=== PATIENT | female | born 1945 | race African-American/Black ===

== ENCOUNTER 2017-02-10 13:07 | Emergency (ER) | payer MEDICARE, MEDICAID ==
[~2017-02-10] VITALS: Ht 170.2 cm; Wt 108.9 kg
[~2017-02-10 13:07] MED LIST: ADALAT CC90 MG ORAL; ALBUTEROL2.5 MG/3 M INH; ASPIRIN-LOW81 MG ORAL; ATIVAN2 MG ORAL; AZOPT10 ML BOTH EYES; CELEBREX100 MG ORAL; DOK100 M1 PO; GLUCOTROL XL10 MG ORAL; HYDROCHLOROTHIA50 MG ORAL; IBUPROFEN200 MG ORAL; METFORMIN HCL1000 M1 ORAL; PROAIR HFA8.5 GM INH; PROPYLTHIOURACI50 MG PO; TENORMIN50 MG ORAL; TRAMADOL HCL50 MG ORAL; TRAVATAN Z5 ML BOTH EYES
[2017-02-10] MEDS ORDERED: Lactulose 20gm/30ml UDC ORAL ONE (14:15)
--- NOTE | 2017-02-10 14:17 | Emergency Room Report ---
History of Present Illness General Chief Complaint: General Complaint Source: Patient, Medical Record Present Illness HPI 71 YO Female presents to the ED c/o constipation x 1 day with only passing gas , and having to strain with no productivity in attempt to have bowel movement. denies abdominal pain, denies nausea or vomiting, denies hx of cx or familial hx of cx. Denies abdominal tenderness, rashes, blood in the stool, black tarry stools, or hemorrhoids or night sweats. Pt states she regularly takes prune juice in an attempt to keep her BM's regular. pt. states she has had subjective constipation x 2 years states on average having a BM every 2-3 days, and has to strain regularly. Pt. denies fatigue, polyuria or polydipsia. Pt. reports hx of DM, HTN, and asthma. Denies CP, Palpitations, LOC, AMS, dizziness, Changes in Vision, Sensation, paresthesias, or a sudden severe headache. Allergies: Coded Allergies: No Known Allergies (Unverified , 11/15/12) Patient History Past Medical History: see triage record Past Surgical History: none Pertinent Family History: none Now: No Immunizations: UTD Reviewed Nursing Documentation: PMH: Agreed, PSxH: Agreed Nursing Documentation-PMH Past Medical History: No History, Except For Hx Cardiac Problems: Yes Hx Hypertension: Yes Hx COPD: Yes Hx Diabetes: Yes Hx Cancer: No Hx Gastrointestinal Problems: No Hx Neurological Problems: No Review of Systems All Other Systems: negative except mentioned in HPI Physical Exam Vital Signs Date Time Temp Pulse Resp B/P Pulse Ox O2 Delivery O2 Flow Rate FiO2 02/10/17 13:21 97.7 70 16 164/70 94 Room Air Sp02 EP Interpretation: reviewed, abnormal - Systolic BP is elevated General Appearance: no apparent distress, alert, GCS 15, non-toxic Head: normocephalic, atraumatic Eyes: bilateral eye PERRL, bilateral eye normal inspection ENT: hearing grossly normal, normal pharynx, no angioedema, normal voice Neck: full range of motion, supple/symm/no masses Respiratory: lungs clear, normal breath sounds, speaking full sentences Cardiovascular #1: regular rate, rhythm, no edema Gastrointestinal: normal bowel sounds, non tender, soft, no guarding, no rebound, other - Negative [place] signs, Negative MacBurney's sign, Negative Rosvigns Sign, Negative Psoas, No Peritoneal signs. , overweight Rectal: deferred Genitourinary: normal inspection, no CVA tenderness Musculoskeletal: back normal, gait/station normal, normal range of motion Neurologic: alert, oriented x3, responsive, motor strength/tone normal, sensory intact, speech normal Psychiatric: judgement/insight normal, memory normal, mood/affect normal Skin: normal color, no rash, warm/dry, well hydrated Medical Decision Making PA Attestation Dr. Haskins is my supervising Physician whom patient management has been discussed with. Diagnostic Impression: Primary Impression: Constipation Qualified Codes: K59.01 - Slow transit constipation ER Course 71 YO Female presents to the ED c/o constipation x 1 day with only passing gas , and having to strain with no productivity in attempt to have bowel movement. denies abdominal pain, denies nausea or vomiting, denies hx of cx or familial hx of cx. Denies abdominal tenderness, rashes, blood in the stool, black tarry stools, or hemorrhoids or night sweats. Pt states she regularly takes prune juice in an attempt to keep her BM's regular. pt. states she has had subjective constipation x 2 years states on average having a BM every 2-3 days, and has to strain regularly. Pt. denies fatigue, polyuria or polydipsia. Pt. reports hx of DM, HTN, and asthma. Denies CP, Palpitations, LOC, AMS, dizziness, Changes in Vision, Sensation, paresthesias, or a sudden severe headache. Ddx considered but are not limited to constipation , appendicitis, SBO, acute abdomen, Dm gastroparesis Vital signs: are WNL, pt. is afebrile H&PE are most consistent with constipation. bowl sounds are normo active, abdomen is soft, non-distended and non-tender. ORDERS: Imaging and laboratory work is not indicated with HPI and benign PE. ED INTERVENTIONS: - Lactulose PO -d/w pt. that I will initiate conservative treatment, d/w pt. increased fiber, and the importance in following up with her PCP. d/w pt. to return to the ED with new or worsening of current symptoms. I do not suspect an emergent condition at this time. with current presentation pt. is stable for close outpatient follow up. DISCHARGE: At this time pt. is stable for d/c to home. Will provide printed patient care instructions, and any necessary prescriptions. Care plan and follow up instructions have been discussed with the patient prior to discharge. Last Vital Signs Date Time Temp Pulse Resp B/P Pulse Ox O2 Delivery O2 Flow Rate FiO2 02/10/17 13:21 97.7 70 16 164/70 94 Room Air Disposition: HOME, SELF-CARE Condition: Stable Scripts Docusate Sodium* (COLACE*) 100 Mg Capsule 100 MG ORAL TWICE A DAY, #60 CAP Prov: Chantel Gamez 02/10/17 Lactulose (LACTULOSE*) 20 Gm/30 Ml Solution 30 ML ORAL BID, #180 ML 0 Refills Prov: Chantel Gamez 02/10/17 Patient Instructions: Constipation, Adult, [id number] Additional Instructions: Take medications as directed. Follow up with PCP in 3 days, to evaluate your hx of constipation, and for continued management of your symptoms. Return sooner to ED if new symptoms occur, or current symptoms become worse. - Please note that this Emergency Department Report was dictated using [email or web address] research intern technology software, occasionally this can lead to erroneous entry secondary to interpretation by the dictation equipment. Chantel Gamez Feb 10, 2017 14:17
[2017-02-10] MEDS ORDERED: COLACE100 MG ORAL (14:18)
[2017-02-10] MEDS ORDERED: LACTULOSE20 GM/301 ORAL (14:18)
[2017-02-10 14:19] VITALS: BP 157/65
[2017-02-10 14:22] VITALS: BP 157/65
== END 2017-02-10 14:25 | disposition home or self-care (01) ==
LOC: EMR 13:55
DX: K59.01 Slow transit constipation (principal); E11.9 Type 2 diabetes mellitus without complications; I10 Essential (primary) hypertension; J44.9 Chronic obstructive pulmonary disease, unspecified
CPT/HCPCS: 99284

== ENCOUNTER 2017-05-17 13:36 | Emergency (ER) | payer MEDICARE, MEDICAID ==
[~2017-05-17] VITALS: Ht 170.2 cm; Wt 94.3 kg
[~2017-05-17 13:36] MED LIST changes: +COLACE100 MG ORAL; +LACTULOSE20 GM/301 ORAL
[2017-05-17 14:32] VITALS: BP 108/67
[2017-05-17 15:09] LABS: BASOPHILS % (AUTO) 1.6 % (0.0-2.0); EOSINOPHILS % (AUTO) 3.5 % (0.0-3.0); LYMPHOCYTES % (AUTO) 18.5 % (20.0-45.0); MEAN CORPUSCULAR HEMOGLOBIN 26.4 PG (27.0-31.0); MEAN CORPUSCULAR HGB CONC 31.2 G/DL (32.0-36.0); MEAN CORPUSCULAR VOLUME 85 FL (80-99); MEAN PLATELET VOLUME 6.8 FL (6.5-10.1); MONOCYTES % (AUTO) 14.9 % (1.0-10.0); NEUTROPHILS % (AUTO) 61.6 % (45.0-75.0); PLATELET COUNT 292 K/UL (150-450); RED BLOOD COUNT 5.59 M/UL (4.20-5.40); RED CELL DISTRIBUTION WIDTH 15.3 % (11.6-14.8); WHITE BLOOD COUNT 8.8 K/UL (4.8-10.8)
[2017-05-17 15:43] LABS: ALANINE AMINOTRANSFERASE 23 U/L (12-78); ALBUMIN/GLOBULIN RATIO 0.4 (1.0-2.7); ANION GAP 9 (5-15); ASPARTATE AMINO TRANSFERASE 20 U/L (15-37); CALCIUM 9.8 MG/DL (8.5-10.1); CARBON DIOXIDE 28 MMOL/L (21-32); CHLORIDE 90 MMOL/L (98-107); CREATININE 2.3 MG/DL (0.55-1.00); POTASSIUM 2.9 MMOL/L (3.5-5.1); SODIUM 127 MMOL/L (136-145); TOTAL PROTEIN 10.7 G/DL (6.4-8.2)
[2017-05-17] MEDS ORDERED: COLCRYS0.6 M1 PO ×2 (16:07→17:54)
[2017-05-17] MEDS ORDERED: traMADol 50mg tab ORAL ONE (16:15)
[2017-05-17 16:20] VITALS: BP 108/67
--- NOTE | 2017-05-17 21:40 | Emergency Room Report ---
History of Present Illness General Chief Complaint: Pain Source: Patient, Family Member - son (LORRAINE PABON) Present Illness HPI The patient is a 72-year-old female presenting for right knee pain and swelling for the past 2 days. She denies any injury to the area. Pain is an 8/10 dull ache and does not radiate. Worse with movement and touch. She states that she is currently taking a diuretic and sees her primary doctor if he 2 weeks for blood draw due to poor kidney function. She denies any other symptoms including nausea, vomiting, fever, chills, shortness of breath, calf pain. She denies history of gout (LORRAINE PABON.Zahra) Allergies: Coded Allergies: No Known Allergies (Unverified , 11/15/12) Patient History Past Medical History: see triage record Pertinent Family History: none Reviewed Nursing Documentation: PMH: Agreed, PSxH: Agreed (LORRAINE PABON) Nursing Documentation-PMH Hx Cardiac Problems: Yes Hx Hypertension: Yes Hx COPD: Yes Hx Diabetes: Yes Hx Cancer: No Hx Gastrointestinal Problems: No Hx Neurological Problems: No (LORRAINE PABON P.A.) Review of Systems All Other Systems: negative except mentioned in HPI (LORRAINE PABON P.Zahra) Physical Exam Vital Signs Date Time Temp Pulse Resp B/P (MAP) Pulse Ox O2 Delivery O2 Flow Rate FiO2 05/17/17 13:47 97.5 76 19 108/67 95 Room Air Sp02 EP Interpretation: reviewed, normal General Appearance: no apparent distress, alert, GCS 15, non-toxic Head: normocephalic, atraumatic Eyes: bilateral eye normal inspection, bilateral eye PERRL ENT: hearing grossly normal, normal pharynx, no angioedema, normal voice Musculoskeletal: decreased range of motion - unable to fully extend at the R knee, swelling - R knee, tender - diffuse R knee Neurologic: alert, oriented x3, responsive, motor strength/tone normal, sensory intact, speech normal Psychiatric: judgement/insight normal, memory normal, mood/affect normal, no suicidal/homicidal ideation Skin: normal color, no rash, warm/dry, well hydrated (LORRAINE PABON P.ATravis) Medical Decision Making PA Attestation Dr. Quintanilla is my supervising physician. Patient management was discussed with my supervising physician (LORRAINE PABON) Diagnostic Impression: Primary Impression: Gout Qualified Codes: M10.9 - Gout, unspecified Additional Impressions: Renal insufficiency Hypokalemia ER Course The patient is a 72-year-old female presenting for right knee pain and swelling Differential diagnoses considered but not limited to: Gout, fracture, strain/ sprain, cellulitis, arthritis, among others PE: Afebrile. NAD Right knee: There is localized edema to the right knee with diffuse tenderness. Unable to fully extend at the knee. Full flexion. There is no lower extremity edema. No calf tenderness. Skin is warm and dry. No erythema Blood work shows signs of renal failure with hyponatremia and hypokalemia Uric acid is elevated Right knee x-ray shows no acute fracture. There is soft tissue swelling with an ossification superior to patella. Unknown etiology The patient is treated for gout with colchicine. She will follow up with her primary doctor for further evaluation. She was given radiology report. She will FU with PMD for electrolyte abnormalities. ER precautions given Laboratory Tests Test 05/17/17 15:00 White Blood Count 8.8 K/UL (4.8-10.8) Red Blood Count 5.59 M/UL (4.20-5.40) H Hemoglobin 14.7 G/DL (12.0-16.0) Hematocrit 47.3 % (37.0-47.0) H Mean Corpuscular Volume 85 FL (80-99) Mean Corpuscular Hemoglobin 26.4 PG (27.0-31.0) L Mean Corpuscular Hemoglobin Concent 31.2 G/DL (32.0-36.0) L Red Cell Distribution Width 15.3 % (11.6-14.8) H Platelet Count 292 K/UL (150-450) Mean Platelet Volume 6.8 FL (6.5-10.1) Neutrophils (%) (Auto) 61.6 % (45.0-75.0) Lymphocytes (%) (Auto) 18.5 % (20.0-45.0) L Monocytes (%) (Auto) 14.9 % (1.0-10.0) H Eosinophils (%) (Auto) 3.5 % (0.0-3.0) H Basophils (%) (Auto) 1.6 % (0.0-2.0) Sodium Level 127 MMOL/L (136-145) L Potassium Level 2.9 MMOL/L (3.5-5.1) L Chloride Level 90 MMOL/L (98-107) L Carbon Dioxide Level 28 MMOL/L (21-32) Anion Gap 9 (5-15) Blood Urea Nitrogen 86 mg/dL (7-18) H Creatinine 2.3 MG/DL (0.55-1.00) H Estimate Glomerular Filtration Rate mL/min (>60) Glucose Level 206 MG/DL (74-106) H Uric Acid 16.3 MG/DL (2.6-7.2) H Calcium Level 9.8 MG/DL (8.5-10.1) Total Bilirubin 0.4 MG/DL (0.2-1.0) Aspartate Amino Transferase (AST) 20 U/L (15-37) Alanine Aminotransferase (ALT) 23 U/L (12-78) Alkaline Phosphatase 173 U/L (46-116) H Total Protein 10.7 G/DL (6.4-8.2) H Albumin 3.5 G/DL (3.4-5.0) Globulin 7.2 g/dL Albumin/Globulin Ratio 0.4 (1.0-2.7) L Lab Results Impression Hyponatremia, hypokalemia, hyperglycemia. Elevated uric acid (LORRAINE PABON P.A.) ER Course Patient was examined by me. Ligaments stable and effusion. No joint warmth. Discussed findings and xray. Discussed treatment plan (stop HCTZ) as well as assisted in obtaining rx. (Robert Quintanilla M.D.) Other X-Ray Diagnostic Results Other X-Ray Diagnostic Results : X-Ray ordered: R knee # of Views/Limited Vs Complete: 3 View Indication: Swelling EP Interpretation: Yes Interpretation: no dislocation, other - + STS with degenerative changes and ossifcation Impression: Other - + STS with degenerative changes and ossifcation Electronically Signed by: PARUL Chambersibyakov Text I have reviewed the xray with my supervising physician and interpretation is that there is STS with degenerative changes and ossification (LORRAINE PABON P.A.) Other X-Ray Diagnostic Results : Electronically Signed by: Imeldaibe documentation reviewed by me and is accurate, Robert Quintanilla MD. (Robert Quintanilla M.D.) Last Vital Signs Date Time Temp Pulse Resp B/P (MAP) Pulse Ox O2 Delivery O2 Flow Rate FiO2 05/17/17 16:20 97.5 73 19 108/67 95 Room Air Status: improved (LORRAINE PABON P.A.) Disposition: HOME, SELF-CARE Condition: Improved Scripts Colchicine (COLCRYS) 0.6 Mg Tablet 0.6 MG PO Q6HR, #10 TAB Prov: LORRAINE PABON 05/17/17 Patient Instructions: Gout Additional Instructions: I discussed my findings with the patient. All questions and concerns have been answered. Treatment and medication compliance have been addressed. I advised the patient that they need to follow up with PMD in 3-5 days. Return to ED if symptoms worsen, new symptoms arise such as fever, or if needed for any reason. Patient verbalized understanding of discharge instructions. Please be aware that the colchicine may have you experience nausea, vomiting, and/or diarrhea LORRAINE PABON May 17, 2017 21:40 Robert Quintanilla M.D. May 18, 2017 05:31
--- NOTE | 2017-05-18 12:31 | Diagnostic Imaging Report ---
Indication: Pain 3 views of the right knee were obtained. Findings: Large ossified density noted above the patella. This appears to be free-floating and may be within the joint. There is also in the unusual bony projection in the lateral aspect of the distal femur well above the patella consistent with an osteochondroma. The patella appears high in location as well. Moderate osteophyte formation involving all 3 compartments of the knee noted. Vascular calcifications noted. Impression: Large ossified structure in the suprapatellar pouch may be a synovial osteochondroma. Pedunculated appearing osseous projection involving the lateral aspect of the distal femoral diaphysis consistent with the osteochondroma. Further cross-sectional imaging, this is either CT or MR) of these findings may be of benefit. Osteoarthritis
== END 2017-05-17 16:21 | disposition home or self-care (01) ==
LOC: EMR 14:34
DX: M10.9 Gout, unspecified (principal); N28.9 Disorder of kidney and ureter, unspecified; E87.6 Hypokalemia; M25.561 Pain in right knee; M25.461 Effusion, right knee; Z86.79 Personal history of other diseases of the circulatory system; I10 Essential (primary) hypertension; J44.9 Chronic obstructive pulmonary disease, unspecified; E11.9 Type 2 diabetes mellitus without complications
CPT/HCPCS: 36415; 80053; 84550; 85025; 99284

== ENCOUNTER 2017-12-26 11:22 | Emergency (ER) | payer MEDICARE, MEDICAID ==
[~2017-12-26] VITALS: Ht 170.2 cm; Wt 108.9 kg
[~2017-12-26 11:22] MED LIST changes: +COLCRYS0.6 M1 PO
[2017-12-26 11:37] VITALS: BP 157/76
[2017-12-26] MEDS ORDERED: COLCHICINE0.6 M1 PO (11:48)
[2017-12-26 12:05] VITALS: BP 150/78
--- NOTE | 2017-12-26 13:22 | Emergency Room Report ---
History of Present Illness General Chief Complaint: Pain Source: Patient Present Illness HPI Patient presents with complaints of left knee pain Reports that she has history of gout and feels that this is exacerbated again she noticed some mild swelling however does not have any other pain medication denies any fall or trauma She reports that she has been walking around more than usual Denies any fevers or chills denies any redness Allergies: Coded Allergies: No Known Allergies (Unverified , 11/15/12) Patient History Past Medical History: see triage record Pertinent Family History: none Reviewed Nursing Documentation: PMH: Agreed; PSxH: Agreed Nursing Documentation-PMH Hx Cardiac Problems: Yes Hx Hypertension: Yes Hx COPD: Yes Hx Diabetes: Yes Hx Cancer: No Hx Gastrointestinal Problems: No Hx Neurological Problems: No Review of Systems All Other Systems: negative except mentioned in HPI Physical Exam Vital Signs Date Time Temp Pulse Resp B/P (MAP) Pulse Ox O2 Delivery O2 Flow Rate FiO2 12/26/17 11:31 97.9 84 20 157/76 96 Room Air 97.9 Sp02 EP Interpretation: reviewed, normal General Appearance: well appearing, no apparent distress Head: normocephalic, atraumatic Eyes: bilateral eye PERRL, bilateral eye EOMI ENT: normal pharynx, no angioedema Neck: supple Respiratory: lungs clear Cardiovascular #1: regular rate, rhythm Gastrointestinal: non tender, soft, no mass Musculoskeletal: other - Mild swelling is noted to the left knee, no obvious erythema joint is mobile, Neurologic: alert, oriented x3, responsive Skin: other - As above Lymphatic: no adenopathy Medical Decision Making Diagnostic Impression: Primary Impression: Gout Additional Impression: Knee effusion, left ER Course Multiple differentials such as septic joint, arthritis, gout versus other, occult fracture entertained Patient has otherwise a fairly benign evaluation My consideration for septic joint is low And the patient treated symptomatically for initial outpatient care Last Vital Signs Date Time Temp Pulse Resp B/P (MAP) Pulse Ox O2 Delivery O2 Flow Rate FiO2 12/26/17 12:05 97.9 79 20 150/78 96 Room Air 97.9 Status: improved Disposition: HOME, SELF-CARE Condition: Improved Scripts Colchicine (Colchicine) 0.6 Mg Capsule 0.6 MG PO Q8HR, #12 CAP Prov: Dena Reyna DO 12/26/17 Referrals: NON PHYSICIAN (PCP) Patient Instructions: Knee Effusion, [id number], Gout, [id number], Joint Pain Additional Instructions: Patient is provided with the discharge instructions notified to follow up with primary doctor in the next 2-3 days otherwise return to the er with any worsening symptoms. Please note that this report is being documented using [employer] technology. This can lead to erroneous entry secondary to incorrect interpretation by the dictating instrument. Dena Reyna DO December 26, 2017 13:22
== END 2017-12-26 12:05 | disposition home or self-care (01) ==
LOC: EMR 11:36
DX: M10.9 Gout, unspecified (principal); M25.462 Effusion, left knee; I10 Essential (primary) hypertension; J44.9 Chronic obstructive pulmonary disease, unspecified; E11.9 Type 2 diabetes mellitus without complications
CPT/HCPCS: 99283

== ENCOUNTER 2018-03-05 12:02 | Emergency (ER) | payer MEDICARE, MEDICAID ==
[~2018-03-05] VITALS: Ht 170.2 cm; Wt 99.3 kg
[~2018-03-05 12:02] MED LIST changes: +COLCHICINE0.6 M1 PO
[2018-03-05 12:30] VITALS: BP 134/71
[2018-03-05] MEDS ORDERED: oxyCODONE HCL/Acetaminophen 5/325mg ORAL ONE (12:30)
[2018-03-05] MEDS ORDERED: NORCO 5-325 TA1 EACH ORAL (12:56)
[2018-03-05] MEDS ORDERED: COLCHICINE0.6 M1 PO (12:56)
--- NOTE | 2018-03-05 12:59 | Emergency Room Report ---
History of Present Illness General Chief Complaint: Pain Source: Patient Present Illness HPI 72-year-old female with history of gout, CK-MB, hypertension, presents with 5 days of increasing bilateral kneeachy, constant, severe pain, reports mild swelling bilaterally but no redness, no fevers and does reports she's able to range the knee. His pain in the past, and she only tried Tylenol without relief. Allergies: Coded Allergies: AMPICILLIN (Verified Allergy, Unknown, 03/05/18) Patient History Past Medical History: see triage record Reviewed Nursing Documentation: PMH: Agreed; PSxH: Agreed Nursing Documentation-PMH Hx Cardiac Problems: Yes - gout Hx Hypertension: Yes Hx COPD: Yes Hx Diabetes: Yes Hx Cancer: No Hx Gastrointestinal Problems: No Hx Neurological Problems: No Review of Systems All Other Systems: negative except mentioned in HPI Physical Exam Vital Signs Date Time Temp Pulse Resp B/P (MAP) Pulse Ox O2 Delivery O2 Flow Rate FiO2 03/05/18 12:16 98.5 84 20 134/71 88 Room Air 98.4 Sp02 EP Interpretation: reviewed, normal General Appearance: no apparent distress, alert, non-toxic Head: normocephalic Eyes: bilateral eye normal inspection, bilateral eye PERRL, bilateral eye EOMI ENT: normal ENT inspection, hearing grossly normal, normal pharynx, no angioedema, normal voice, moist mucus membranes Neck: normal inspection, full range of motion, supple, supple/symm/no masses Respiratory: chest non-tender, lungs clear, normal breath sounds, chest symmetrical, palpation of chest normal Cardiovascular #1: normal peripheral pulses, regular rate, rhythm, edema - Trace bilateral lower extremity edema to distal tibia Cardiovascular #2: 2+ radial (R), 2+ radial (L), 2+ dorsalis pedis (R), 2+ dorsalis pedis (L) Gastrointestinal: normal inspection, non tender, soft, no mass, no guarding, no rebound Rectal: deferred Genitourinary: normal inspection, no CVA tenderness Musculoskeletal: back normal, gait/station normal, non-tender, no calf tenderness, decreased range of motion - Patient able to range 92 nearly ~160, but full extension is limited, but no overlying erythema warmth and only mild effusion palpable in both knees, Lilly's Sign negative Neurologic: alert, responsive, induction machine setter III-XII nml as tested, motor strength/tone normal, sensory intact, speech normal Psychiatric: judgement/insight normal, memory normal, mood/affect normal, no suicidal/homicidal ideation Skin: normal color, no rash, warm/dry, normal turgor Lymphatic: no adenopathy Medical Decision Making Diagnostic Impression: Primary Impression: Gout ER Course Patient given Percocet here with excellent relief of pain, review labs reveal patient with intermittent kidney function test elevations in the past, but normal liver function. Will give colchicine as well as 5 tabs of [place] when necessary for severe pain. Current follow-up with PMD. Diagnosis gout flare Last Vital Signs Date Time Temp Pulse Resp B/P (MAP) Pulse Ox O2 Delivery O2 Flow Rate FiO2 03/05/18 12:40 98.5 03/05/18 12:30 80 20 134/71 90 Room Air Disposition: HOME, SELF-CARE Condition: Stable Scripts Hydrocodone Bit/Acetaminophen 5-325* (NORCO 5-325*) 1 Each Tablet 1 TAB ORAL Q6H PRN for For Pain, #5 TAB 0 Refills Prov: REGINALDO HESTER M.D 03/05/18 Colchicine (Colchicine) 0.6 Mg Capsule 0.6 MG PO TID, #20 CAP Prov: REGINALDO HESTER M.D 03/05/18 Referrals: NON PHYSICIAN (PCP) Patient Instructions: Gout, [id number] REGINALDO HESTER M.D Mar 05, 2018 12:59
[2018-03-05 13:05] VITALS: BP 124/75
== END 2018-03-05 13:05 | disposition home or self-care (01) ==
LOC: EMR 12:29
DX: M10.9 Gout, unspecified (principal); I10 Essential (primary) hypertension; J44.9 Chronic obstructive pulmonary disease, unspecified; E11.9 Type 2 diabetes mellitus without complications; Z88.0 Allergy status to penicillin
CPT/HCPCS: 99283

== ENCOUNTER 2018-11-11 11:46 | Emergency (ER) | payer MEDICARE, MEDICAID ==
[~2018-11-11] VITALS: Ht 167.6 cm; Wt 97.5 kg
[~2018-11-11 11:46] MED LIST changes: +NORCO 5-325 TA1 EACH ORAL
[2018-11-11 11:53] VITALS: BP 153/83
--- NOTE | 2018-11-11 12:00 | NUR ---
ED Nurse Note: Patient walked into ED from home with her friend due to left knee pain starting last weekend patient hx of gout and arthritis. patient has full range of motion on the left knee, patient states that she feels like it's swelling.
[2018-11-11] MEDS ORDERED: oxyCODONE HCL/Acetaminophen 5/325mg ORAL ONE (12:15)
--- NOTE | 2018-11-11 12:19 | Emergency Room Report ---
History of Present Illness General Chief Complaint: Pain Source: Patient Present Illness HPI 73-year-old female patient presents the ER complaining of left knee pain for the past week. Patient reports history of osteoarthritis and gout. Reports that she has been expressing pain and swelling in her left knee. Reports that she has not seen her primary care doctor or engraver tender. Reports is been taking colchicine and Motrin with mild relief of pain symptoms. Reports pain with ambulation. Denies fever, chest pain, shortness of breath. Reports hx of diabetes. Allergies: Coded Allergies: AMPICILLIN (Verified Allergy, Unknown, 03/05/18) Patient History Past Medical History: see triage record Now: No Reviewed Nursing Documentation: PMH: Agreed; PSxH: Agreed Nursing Documentation-PMH Past Medical History: No History, Except For Hx Hypertension: Yes Hx COPD: Yes Hx Diabetes: Yes Hx Cancer: No Hx Gastrointestinal Problems: No Hx Neurological Problems: No Review of Systems All Other Systems: negative except mentioned in HPI Physical Exam Vital Signs Date Time Temp Pulse Resp B/P (MAP) Pulse Ox O2 Delivery O2 Flow Rate FiO2 11/11/18 11:53 97.7 71 18 153/83 91 Room Air Sp02 EP Interpretation: reviewed, normal General Appearance: well appearing, no apparent distress, alert, GCS 15, non- toxic Head: normocephalic, atraumatic Eyes: bilateral eye normal inspection, bilateral eye PERRL ENT: hearing grossly normal, normal pharynx, no angioedema, normal voice, uvula midline, moist mucus membranes Neck: full range of motion Respiratory: lungs clear, normal breath sounds, no rhonchi, no respiratory distress, no accessory muscle use, no wheezing, speaking full sentences Cardiovascular #1: regular rate, rhythm, no edema Cardiovascular #2: 2+ dorsalis pedis (R), 2+ dorsalis pedis (L) Musculoskeletal: back normal, digits/nails normal, gait/station normal, normal range of motion, non-tender, no calf tenderness, Lilly's Sign negative, other - No erythema or edema, no warmth to touch, no gouty tophi Psychiatric: mood/affect normal Skin: no rash Medical Decision Making PA Attestation Dr. Gary is my supervising Physician whom patient management has been discussed with. Diagnostic Impression: Primary Impression: Gout ER Course Pt. presents to the ED c/o left knee gout attack. Ddx considered but are not limited to gout, fracture, sprain, strain, contusion , cellulitis, DVT, septic joint, arthritis. Negative Homans sign, no calf tenderness, dorsalis pedis pulse 2+, low suspicion for DVT. Patient nontoxic-appearing, afebrile, no warmth to touch of joint, no erythema or edema, low suspicion for septic joint. Vital signs: are WNL, pt. is afebrile ER COURSE: Pain likely secondary to gout. Will provide patient with Percocet in the ER and and low dose of prednisone for swelling symptoms. Bill wrap applied, checked afterwards by me showing good alignment neurovascularly intact. Provide patient with a cane. Advised on R ICE. Continue to take colchicine for gout symptoms. Follow-up with primary care provider and discuss further referral to a engraver tender. ER precautions given. DISCHARGE: At this time pt. is stable for d/c to home. Patient resting comfortably, nontoxic appearing, talking without difficulty. Will provide printed patient care instructions, and any necessary prescriptions. Patient instructed to follow with primary care provider in 3 - 5 days and to discuss further gout and foot pain treatment. Care plan and follow up instructions have been discussed with the patient prior to discharge. Take medications as directed. Patient questions asked and answered. ER precautions given, patient instructed to return to ER immediately for any new or worsening of symptoms. Last Vital Signs Date Time Temp Pulse Resp B/P (MAP) Pulse Ox O2 Delivery O2 Flow Rate FiO2 11/11/18 11:53 97.7 71 18 153/83 91 Room Air Status: improved Disposition: HOME, SELF-CARE Condition: Stable Scripts Prednisone* (PREDNISONE*) 10 Mg Tablet 10 MG ORAL DAILY for 6 Days, #6 TAB 0 Refills Prov: Uzair Thornton P.A. 11/11/18 Acetaminophen With Codeine (T#3) (TYLENOL #3 TAB*) Y Tab 1 TAB ORAL Q6HR PRN for For Pain, #8 TAB Prov: Uzair Thornton P.A. 11/11/18 Patient Instructions: Gout, [id number] Additional Instructions: Patient instructed to follow up with primary care provider and discuss further referral to engraver tender. Patient instructed on RICE method: rest, ice, compression, elevation. Patient instructed to WBAT. Take medications as directed. Begin taking prednisone tomorrow, first dose given in the ER. Tylenol #3 may cause drowsiness, do not take prior to drinking , driving, operating heavy machinery. Continue taking NSAIDs following completion of Tylenol #3. Patient questions asked and answered. ER precautions given, patient instructed to return to ER immediately for any new or worsening of symptoms. Uzair Thornton Nov 11, 2018 12:19
[2018-11-11] MEDS ORDERED: PREDNISONE10 MG ORAL (12:24)
[2018-11-11] MEDS ORDERED: ACETAMINOPHEN-1 EAC1 ORAL (12:24)
--- NOTE | 2018-11-11 12:30 | NUR ---
ED Nurse Note: patient does not want to take xray for now. notified FRANK SON
[2018-11-11 12:37] VITALS: BP 153/83
--- NOTE | 2018-11-11 12:37 | NUR ---
ER DISCHARGE NOTE: Patient is cleared to be discharged per ERMD, pt is aox4, on room air, with stable vital signs. pt was given dc and prescription instructions, pt was able to verbalize understanding, pt id band removed without complications. pt is able to ambulate with steady gait escorted by her friend. Instructed patient not to drive, patient stated her friend will drive. pt took all belongings.
== END 2018-11-11 12:39 | disposition home or self-care (01) ==
LOC: EMR 11:48
DX: M10.9 Gout, unspecified (principal); I00 Rheumatic fever without heart involvement; E11.9 Type 2 diabetes mellitus without complications; J44.9 Chronic obstructive pulmonary disease, unspecified; Z88.0 Allergy status to penicillin
CPT/HCPCS: 99282; J7512